=== PATIENT | male | born 1960 | race Caucasian/White ===

== ENCOUNTER → 2017-11-27 | Outpatient (CLI) | payer BC ==
--- NOTE | 2017-11-27 15:29 | US ---
EXAMINATION TYPE: US kidneys/renal and bladder DATE OF EXAM: 11/27/2017 COMPARISON: NONE CLINICAL HISTORY: N28.1 Cyst of kidney. known cyst from MRI EXAM MEASUREMENTS: Right Kidney: 11.9 x 4.1 x 5.7 cm Left Kidney: 10.9 x 5.7 x 6.3 cm Right Kidney: 2.1cm inferior pole cyst with increased or transmission is noted. Left Kidney: wnl Bladder: wnl Bilateral Jets seen: no There is no evidence for hydronephrosis at this point in time. No nephrolithiasis is seen. The urina ry bladder is anechoic. Bilateral ureteral jets are seen. IMPRESSION: Right inferior pole 2.1 cm renal cyst. No evidence of hydronephrosis or nephrolithiasis.
== END ==
LOC: RADUSWWP 14:52
PROVIDERS: ATTEND Family Medicine
DX: N28.1 Cyst of kidney, acquired (principal)
CPT/HCPCS: 76770

== ENCOUNTER 2022-01-06 13:57 | Observation (INO) | payer BC ==
[2022-01-06 14:44] LABS: Basophils # (A) 0.1 k/uL (0-0.2); Basophils % (A) 1 %; Eosinophils # (A) 0.2 k/uL (0-0.7); Eosinophils % (A) 3 %; HGB 14.9 gm/dL (13.0-17.5); Lymphocytes # (A) 1.5 k/uL (1.0-4.8); Lymphocytes % (A) 21 %; MCHC 34.7 g/dL (31.0-37.0); MCV 92.2 fL (80.0-100.0); Mean Platelet Volume 6.5; Monocytes # (A) 0.4 k/uL (0-1.0); Monocytes % (A) 5 %; Neutrophils % (A) 69 %; Platelet Count 258 k/uL (150-450); RBC 4.66 m/uL (4.30-5.90); WBC 7.2 k/uL (3.8-10.6)
[2022-01-06 14:48] LABS: ALT 17 U/L (4-49); AST 30 U/L (17-59); African American GFR (CKD) >90 (>60 ml/min/1.73 sqM); Albumin 4.6 g/dL (3.5-5.0); Alkaline Phosphatase 84 U/L (38-126); Anion Gap 8 mmol/L; Blood Urea Nitrogen 8 mg/dL (9-20); Calcium 9.8 mg/dL (8.4-10.2); Carbon Dioxide 24 mmol/L (22-30); Chloride 104 mmol/L (98-107); Glucose 111 mg/dL (74-99); Non-African American GFR(CKD) >90 (>60 ml/min/1.73 sqM); Potassium 4.2 mmol/L (3.5-5.1); Sodium 136 mmol/L (137-145); Total Bilirubin 0.6 mg/dL (0.2-1.3)
[2022-01-06 14:56] LABS: INR 0.9 (<1.2)
--- NOTE | 2022-01-06 17:21 | ED ---
Dizziness HPI - General Chief Complaint: Dizziness Stated Complaint: High Blood Pressure, Dizziness, Light headed Time Seen by Provider: 01/06/22 16:51 Source: patient, RN notes reviewed Mode of arrival: wheelchair Limitations: no limitations - History of Present Illness Initial Comments: This is a pleasant 61-year-old male who presents emergency back complaining of lightheadedness, hypertension, and transient double vision. She states that last night he had nasal congestion and stuffiness. He thought he had a head cold. States he skipped his blood pressure medications and took NyQuil. He states he woke up this morning with elevated blood pressure and at 6 AM had an episode of double vision which lasted about one hour. States EMS was called and she came to us house. He was taken through a baseline neurological eval, he states by family got there they double vision had resolved. He denies any other neurologic symptoms. There is no focal weakness. No slurred speech. No facial drooping. States he did have a headache. He states she's actually more or less back to baseline now. Patient denies any shortness breath or chest pain. No neck pain. No abdominal pain. No nausea or vomiting. No changes in balance urination. No numbness or tingling. No gait disturbance. No current dizziness or vertiginous symptoms. In rashes or lesions. MD Complaint: lightheadedness - Related Data Home Medications Medication Instructions Recorded Confirmed Allopurinol [Zyloprim] 100 mg PO DAILY 01/06/22 01/06/22 Ascorbic Acid [Vitamin C] 500 mg PO DAILY 01/06/22 01/06/22 Cholecalciferol [Vitamin D3 (25 25 mcg PO DAILY 01/06/22 01/06/22 Mcg = 1000 Iu)] Olmesartan Medoxomil [Benicar] 40 mg PO DAILY 01/06/22 01/06/22 Terazosin HCl 5 mg PO DAILY 01/06/22 01/06/22 Zinc 50 mg PO DAILY 01/06/22 01/06/22 Previous Rx's Medication Instructions Recorded Amoxic-Pot Clav 875-125Mg 1 tab PO BID 7 Days #14 tab 01/07/22 [Augmentin 875-125] Aspirin 81 mg PO DAILY 30 Days #30 tab 01/07/22 Atorvastatin [Lipitor] 40 mg PO HS 30 Days #30 tab 01/07/22 Fluticasone Propionate [Flonase 1 spray EA NOSTRIL BID #9.9 ml 01/07/22 Allergy Relief] predniSONE See Taper PO DIRECTED #30 tab 01/07/22 Allergies Allergy/AdvReac Type Severity Reaction Status Date / Time No Known Allergies Allergy Verified 01/06/22 17:40 Review of Systems ROS Statement: Those systems with pertinent positive or pertinent negative responses have been documented in the HPI. ROS Other: All systems not noted in ROS Statement are negative. Past Medical History Past Medical History: Hypertension Additional Past Medical History / Comment(s): back pain History of Any Multi-Drug Resistant Organisms: None Reported Past Surgical History: Joint Replacement, Orthopedic Surgery Additional Past Surgical History / Comment(s): Bilateral knee sx, right ankle sx, hip replacement Past Psychological History: No Psychological Hx Reported Smoking Status: Former smoker Past Alcohol Use History: None Reported Past Drug Use History: None Reported - Past Family History Family Family Medical History: Coronary Artery Disease (CAD) General Exam - General Exam Comments Initial Comments: Nontoxic-appearing 61-year-old male who presents in no acute distress. Cranial nerves II through XII are intact. Limitations: no limitations General appearance: alert, in no apparent distress Head exam: Present: atraumatic, normocephalic, normal inspection Eye exam: Present: normal appearance, PERRL, EOMI. Absent: scleral icterus, conjunctival injection, nystagmus, periorbital swelling, periorbital tenderness ENT exam: Present: normal exam, normal oropharynx, mucous membranes moist, TM's normal bilaterally, normal external ear exam Neck exam: Present: normal inspection, full ROM. Absent: tenderness, meningismus, lymphadenopathy Respiratory exam: Present: normal lung sounds bilaterally. Absent: respiratory distress, wheezes, rales, rhonchi, stridor Cardiovascular Exam: Present: regular rate, normal rhythm, normal heart sounds. Absent: systolic murmur, diastolic murmur, rubs, gallop, clicks GI/Abdominal exam: Present: soft, normal bowel sounds. Absent: distended, tende rness, guarding, rebound, rigid, diminished bowel sounds Extremities exam: Present: normal inspection, full ROM, normal capillary refill. Absent: tenderness, pedal edema, joint swelling, calf tenderness Back exam: Present: normal inspection Neurological exam: Present: alert, oriented X3, CN II-XII intact, normal gait, other (Cerebellar testing is normal. [place] Coma Scale is 15. Romberg is negative). Absent: altered, abnormal gait, motor sensory deficit, reflexes normal Psychiatric exam: Present: normal affect, normal mood Skin exam: Present: warm, dry, intact, normal color. Absent: rash Course Vital Signs 01/06/22 01/06/22 01/06/22 14:12 18:42 21:40 Temperature 98.6 F 97.9 F Pulse Rate 95 80 78 Pulse Rate [ Pulse Oximetery ] Respiratory 20 16 18 Rate Blood Pressure 154/97 171/101 153/92 Blood Pressure [Left Arm] O2 Sat by Pulse 96 99 95 Oximetry 01/07/22 01/07/22 01/07/22 03:48 07:54 13:22 Temperature 98.0 F 98.5 F Pulse Rate 77 Pulse Rate [ 80 104 H Pulse Oximetery ] Respiratory 16 18 15 Rate Blood Pressure 161/89 Blood Pressure 159/92 136/84 [Left Arm] O2 Sat by Pulse 96 98 98 Oximetry - Reevaluation(s) Reevaluation #1: 01/06/22 18:20 Medical record is reviewed Symptoms are unchanged Patient is informed of results and questions answered Patient in no distress EKG Findings - EKG Results: EKG: interpreted by PORTER, sinus rhythm (Right bundle-branch block with a rate of 90, no evidence of acute changes. IN interval is 204 ms consistent with a first-degree AV block. QRS duration 124 ms. QTC 419 ms.) Medical Decision Making - Medical Decision Making Patient had an episode of diplopia which lasted for about 1 hour starting at 6 AM. Patient is now since her asymptomatic. Patient's blood pressure is elevated at the time. He had no other neurologic complaints or findings. Certainly TIA is within the differential. We'll obtain a CT of the head as well as a CT angiogram of the head and neck. Plan for consultation with neurology. - Lab Data Result diagrams: 01/07/22 06:28 01/07/22 06:28 Lab Results 01/06/22 01/06/22 01/06/22 Range/Units 14:20 14:21 14:21 WBC 7.2 (3.8-10.6) k/uL RBC 4.66 (4.30-5.90) m/uL Hgb 14.9 (13.0-17.5) gm/dL Hct 43.0 (39.0-53.0) % MCV 92.2 (80.0-100.0) fL MCH 32.0 (25.0-35.0) pg MCHC 34.7 (31.0-37.0) g/dL RDW 13.0 (11.5-15.5) % Plt Count 258 (150-450) k/uL MPV 6.5 Neutrophils % 69 % Lymphocytes % 21 % Monocytes % 5 % Eosinophils % 3 % Basophils % 1 % Neutrophils # 5.0 (1.3-7.7) k/uL Lymphocytes # 1.5 (1.0-4.8) k/uL Monocytes # 0.4 (0-1.0) k/uL Eosinophils # 0.2 (0-0.7) k/uL Basophils # 0.1 (0-0.2) k/uL PT 10.0 (9.0-12.0) sec INR 0.9 (<1.2) Sodium (137-145) mmol/L Potassium (3.5-5.1) mmol/L Chloride (98-107) mmol/L Carbon Dioxide (22-30) mmol/L Anion Gap mmol/L BUN (9-20) mg/dL Creatinine (0.66-1.25) mg/dL Est GFR (CKD-EPI)AfAm (>60 ml/min/1.73 sqM) Est GFR (CKD-EPI)NonAf (>60 ml/min/1.73 sqM) Glucose (74-99) mg/dL Calcium (8.4-10.2) mg/dL Total Bilirubin (0.2-1.3) mg/dL AST (17-59) U/L ALT (4-49) U/L Alkaline Phosphatase (38-126) U/L Troponin I (0.000-0.034) ng/mL Total Protein (6.3-8.2) g/dL Albumin (3.5-5.0) g/dL Coronavirus (PCR) Not Detected (Not Detectd) 01/06/22 01/06/22 Range/Units 14:21 14:21 WBC (3.8-10.6) k/uL RBC (4.30-5.90) m/uL Hgb (13.0-17.5) gm/dL Hct (39.0-53.0) % MCV (80.0-100.0) fL MCH (25.0-35.0) pg MCHC (31.0-37.0) g/dL RDW (11.5-15.5) % Plt Count (150-450) k/uL MPV Neutrophils % % Lymphocytes % % Monocytes % % Eosinophils % % Basophils % % Neutrophils # (1.3-7.7) k/uL Lymphocytes # (1.0-4.8) k/uL Monocytes # (0-1.0) k/uL Eosinophils # (0-0.7) k/uL Basophils # (0-0.2) k/uL PT (9.0-12.0) sec INR (<1.2) Sodium 136 L (137-145) mmol/L Potassium 4.2 (3.5-5.1) mmol/L Chloride 104 (98-107) mmol/L Carbon Dioxide 24 (22-30) mmol/L Anion Gap 8 mmol/L BUN 8 L (9-20) mg/dL Creatinine 0.71 (0.66-1.25) mg/dL Est GFR (CKD-EPI)AfAm >90 (>60 ml/min/1.73 sqM) Est GFR (CKD-EPI)NonAf >90 (>60 ml/min/1.73 sqM) Glucose 111 H (74-99) mg/dL Calcium 9.8 (8.4-10.2) mg/dL Total Bilirubin 0.6 (0.2-1.3) mg/dL AST 30 (17-59) U/L ALT 17 (4-49) U/L Alkaline Phosphatase 84 (38-126) U/L Troponin I <0.012 (0.000-0.034) ng/mL Total Protein 8.0 (6.3-8.2) g/dL Albumin 4.6 (3.5-5.0) g/dL Coronavirus (PCR) (Not Detectd) Disposition Clinical Impression: TIA (transient ischemic attack), Diplopia, Hypertension, poor control Disposition: ADMITTED IP TO THIS [facility] Condition: Stable Decision to Admit Reason: Admit from EC Decision Time: 18:23
--- NOTE | 2022-01-06 17:41 | CT ---
EXAMINATION TYPE: CT brain wo con EXAM: CT brain wo con CLINICAL HISTORY: Lightheadedness, dizziness and double vision. COMPARISON: None TECHNIQUE: Contiguous axial noncontrast images of the brain were obtained. Coronal and sagittal refor mats were generated and reviewed. Automated dose control was used for this exam. FINDINGS: There is no evidence for intracranial hemorrhage, mass effect or midline shift. White matter is gross ly preserved. Ventricular size and configuration is within normal limits for degree of parenchymal volume. The paranasal sinuses demonstrate mild to moderate mucosal thickening involving the left maxillary si nus. The mastoid air cells are clear. No evidence for calvarial fracture. IMPRESSION: No acute intracranial abnormality.
--- NOTE | 2022-01-06 18:13 | CT ---
EXAMINATION TYPE: CT angio head neck DATE OF EXAM: 01/06/2022 HISTORY: Lightheaded, dizzy, double vision. COMPARISON: None available. CT DLP: 682.4 mGycm. Automated Exposure Control for Dose Reduction was Utilized. TECHNIQUE: CTA scan of the neck is performed without and with IV Contrast, patient injected with 65 mL of Isovue 370, axial images are obtained, coronal and sagittal reformatted images are reviewed. 3D reconstructed images are created on an independent workstation and reviewed. FINDINGS: There is mild atherosclerosis of the carotid bulbs. Otherwise normal three-vessel branching of the ao rta. There is no evidence of high-grade stenosis, dissection or aneurysm seen in the bilateral common carotid, cervical internal carotid and vertebral arteries. There is no evidence of high-grade stenosis, dissection or aneurysm in the intracranial internal quintero tid arteries, anterior, middle and posterior cerebral arteries as well as in the imaged vertebral and basilar arteries. The communicating arteries are unremarkable. Limited evaluation of the brain parenchyma and osseous structures demonstrate no acute abnormality. IMPRESSION: No significant abnormality of the CTA head/neck. NASCET criteria was used in interpretation of this exam?
[2022-01-06] MEDS ORDERED: ASPIRIN 325 MG TAB PO STA (18:19)
[2022-01-06] MEDS ORDERED: NALOXONE 0.4 MG/ML 1 ML VIAL IV PRN (18:23)
[2022-01-06] MEDS ORDERED: ACETAMINOPHEN TAB 325 MG TAB PO PRN (18:23)
[2022-01-06] MEDS ORDERED: ONDANSETRON 4 MG/2 ML VIAL IVP PRN (18:23)
[2022-01-06] MEDS ORDERED: SODIUM CHLORIDE 0.9% 1,000 ML IV SCH (18:30)
[2022-01-06] MEDS ORDERED: LOSARTAN 25 MG TAB PO STA (18:31)
[2022-01-06] MEDS ORDERED: LORazepam 2 MG/ML INJ IV STA ×2 (18:40→21:59)
--- NOTE | 2022-01-06 19:53 | US ---
EXAMINATION TYPE: US carotid duplex BILAT DATE OF EXAM: 01/06/2022 COMPARISON: CTA 01/06/22 CLINICAL HISTORY: Stenosis evaluation. EXAM MEASUREMENTS: RIGHT: Peak Systolic Velocity (PSV) cm/sec ----- Right CCA: 74.2 ----- Right ICA: 89.9 ----- Right ECA: 109.4 ICA/CCA ratio: 1.2 RIGHT: End Diastole cm/sec ----- Right CCA: 18.1 ----- Right ICA: 28.6 ----- Right ECA: 15.5 LEFT: Peak Systolic Velocity (PSV) cm/sec ----- Left CCA: 62.4 ----- Left ICA: 107.3 ----- Left ECA: 99.5 ICA/CCA ratio: 1.7 LEFT: End Diastole cm/sec ----- Left CCA: 17.3 ----- Left ICA: 36.1 ----- Left ECA: 14.1 VERTEBRALS (direction of flow): Right Vertebral: Antegrade Left Vertebral: Antegrade Rhythm: Normal Mild plaque formation seen bilaterally. There is plaque formation within the left internal carotid ar alicia, where velocities elevate at the left mid internal carotid artery. IMPRESSION: No hemodynamically significant stenosis of the bilateral ICAs. Criteria for Assigning % of Stenosis / Diameter reduction (Estimation based on the indirect measurements of the internal carotid artery velocities (ICA PSV). 1. Normal (no stenosis)=ICA PSV < 125 cm/s: ratio < 2.0: ICA EDV<40 cm/s. 2. Less than 50% stenosis=ICA PSV < 125 cm/s: ratio < 2.0: ICA EDV<40 cm/s. 3. 50 to 69% stenosis=ICA PSV of 125 to 230 cm/s: ration 2.0 ? 4.0: ICA EDV 40-100 cm/s. 4. Greater than 70% stenosis to near occlusion= ICA PSV > 230 cm/s: ratio > 4.0: ICA EDV > 100 cm/s. 5. Near occlusion= ICA PSV velocities may be low or undetectable: variable ratio and ICA EDV. 6. Total occlusion=unable to detect flow.
[2022-01-06] MEDS ORDERED: ZOLPIDEM 5 MG TAB PO PRN ×2 (22:36→22:38)
--- NOTE | 2022-01-07 03:42 | P.HPIM ---
History of Present Illness H&P Date: 01/06/22 Chief Complaint: double vision 61 year old male with hypertension patient woke up this morning experiencing double vision that lasted for about an hour , headache, and not feeling well overall. he found that his blood pressure was high, the night before, he was experiencing had cold symptoms , for which he took nyquil and missed his night time dose of olmesartan and terazosin. patient otherwise denies any other focal neuro deficits he then improved, but later during the day , felt weak and tired again, became anxious and SOB around early afternoon for which he decided to come in for evaluation. he denies any history of CAD, stroke, DM, he denies any smoking, drug abuse, or alcohol blood work unremarkable viral signs stable covid testing negative Review of Systems Pertinent positives as noted in HPI. All other systems were reviewed and are negative Past Medical History Past Medical History: Hypertension Additional Past Medical History / Comment(s): back pain History of Any Multi-Drug Resistant Organisms: None Reported Past Surgical History: Joint Replacement, Orthopedic Surgery Additional Past Surgical History / Comment(s): Bilateral knee sx, right ankle sx, hip replacement Past Psychological History: No Psychological Hx Reported Smoking Status: Former smoker Past Alcohol Use History: None Reported Past Drug Use History: None Reported - Past Family History Family Family Medical History: Coronary Artery Disease (CAD) Medications and Allergies Home Medications Medication Instructions Recorded Confirmed Type Allopurinol [Zyloprim] 100 mg PO DAILY 01/06/22 01/06/22 History Ascorbic Acid [Vitamin C] 500 mg PO DAILY 01/06/22 01/06/22 History Cholecalciferol [Vitamin D3 (25 25 mcg PO DAILY 01/06/22 01/06/22 History Mcg = 1000 Iu)] Olmesartan Medoxomil [Benicar] 40 mg PO DAILY 01/06/22 01/06/22 History Terazosin HCl 5 mg PO DAILY 01/06/22 01/06/22 History Zinc 50 mg PO DAILY 01/06/22 01/06/22 History Allergies Allergy/AdvReac Type Severity Reaction Status Date / Time No Known Allergies Allergy Verified 01/06/22 17:40 Physical Exam Vitals: Vital Signs Temp Pulse Resp BP Pulse Ox 01/06/22 21:40 97.9 F 78 18 153/92 95 01/06/22 18:42 80 16 171/101 99 02/21/22 14:12 98.6 F 95 20 154/97 96 Intake and Output 01/06/22 01/06/22 01/07/22 14:59 22:59 06:59 Other: Weight 104.326 kg Constitutional: No acute distress, conversant, pleasant Eyes: Anicteric sclerae, moist conjunctiva, Pupils equal round reactive to light ENMT: NC/AT Oropharynx clear, no erythema, or exudates Neck: Supple, FROM, no masses, or JVD No carotid bruits No thyromegaly Lungs: Clear to auscultation Clear to percussion Normal respiratory effort, no accessory muscle use Cardiovascular: Heart regular in rate and rhythm, No murmurs, gallops, or rubs No peripheral edema Abdominal: Soft Nontender, no guarding, rebound or rigidity Abdomen moving with respiration Normoactive bowel sounds No hepatomegaly, No splenomegaly No palpable mass No abdominal wall hernia noted Skin: Normal temperature, tone, texture, turgor No induration No subcutaneous nodules No rash, lesions No ulcers Extremities: No digital cyanosis No clubbing Pedal pulses intact and symmetrical Radial pulses intact and symmetrical No calf tenderness Psychiatric: Alert and oriented to person, place and time Appropriate affect fair judgement Neuro Muscles Strength 5/5 in all 4 extremities Sensation to light touch grossly present throughout Cranial nerves II-XII grossly intact No focal sensory deficits Finger-nose test intact Lymphatics: no palpable cervical or supraclavicular , or inguinal lymph nodes Results CBC & Chem 7: 01/06/22 14:21 01/06/22 14:21 Labs: Abnormal Lab Results - Last 24 Hours (Table) 01/06/22 Range/Units 14:21 Sodium 136 L (137-145) mmol/L BUN 8 L (9-20) mg/dL Glucose 111 H (74-99) mg/dL Assessment and Plan Assessment: Acute upper respiratory infection most likely viral Covid testing negative Influenza negative Supportive care Symptomatic control of runny nose, headache Generalized weakness and double vision, doubt TIA Patient admitted for neurology evaluation CT imaging of the head, CT angiogram head and neck no acute pathology Check echocardiogram Check lipid panel Check A1c Neurochecks Monitor vital signs PT eval DVT prophylaxis mechanical Full code Anticipated length of stay less than 2 midnights
[2022-01-07] MEDS ORDERED: DOXAZOSIN 4 MG TAB PO SCH (09:00)
[2022-01-07] MEDS ORDERED: ASPIRIN 325 MG TAB PO SCH (09:00)
[2022-01-07] MEDS ORDERED: LOSARTAN 50 MG TAB PO SCH (09:00)
[2022-01-07] MEDS ORDERED: allopurinoL 100 MG TAB PO SCH (09:00)
[2022-01-07 09:15] LABS: Basophils # (A) 0.03 X 10*3/uL (0.00-0.10); Basophils % (A) 0.5 %; Eosinophils # (A) 0.31 X 10*3/uL (0.04-0.35); HCT 39.5 % (39.6-50.0); HGB 13.1 g/dL (13.0-17.0); Immature Grans, Automated 0.6 %; Lymphocytes # (A) 1.92 X 10*3/uL (0.90-5.00); Lymphocytes % (A) 30.8 %; MCH 30.6 pg (27.0-32.0); MCHC 33.2 g/dL (32.0-37.0); MCV 92.3 fL (80.0-97.0); Mean Platelet Volume 9.2 fL (9.5-12.2); Monocytes # (A) 0.62 X 10*3/uL (0.20-1.00); Monocytes % (A) 9.9 %; NRBC Per 100 WBC 0 /100 WBCS (0.0-0.0); Neutrophils # (A) 3.32 X 10*3/uL (1.80-7.70); Neutrophils % (A) 53.2 %; Platelet Count 227 X 10*3/uL (140-440); RBC 4.28 X 10*6/uL (4.40-5.60); WBC 6.24 X 10*3/uL (4.50-10.00)
[2022-01-07 09:23] LABS: African American GFR (CKD) 117.2 (60.0-200.0); BUN/Creat Ratio 10.43 Ratio (12.00-20.00); Blood Urea Nitrogen 7.3 mg/dL (9.0-27.0); Calcium 9.1 mg/dL (8.7-10.3); Chloride 101 mmol/L (96-109); Chol/HDL Ratio 7.19 Ratio; Glucose 90 mg/dL (70-110); LDL Cholesterol,Calculated 167.1 mg/dL (0.0-131.0); Magnesium 2.3 mg/dL (1.5-2.4); Non-African American GFR(CKD) 101.1 (60.0-200.0); Potassium 4.2 mmol/L (3.5-5.5); Sodium 140 mmol/L (135-145)
--- NOTE | 2022-01-07 10:00 | ECHOF ---
Referral Reason:Thrombus MEASUREMENTS -------- HEIGHT: 182.9 cm WEIGHT: 108.4 kg BP: RVIDd: 3.5 cm (< 3.3) IVSd: 1.3 cm (0.6 - 1.1) LVIDd: 4.8 cm (3.9 - 5.3) LVPWd: 1.5 cm (0.6 - 1.1) IVSs: 1.6 cm LVIDs: 4.3 cm LVPWs: 1.4 cm LA Diam: 4.4 cm (2.7 - 3.8) LAESV Index (A-L): 29.52 ml/m Ao Diam: 3.6 cm (2.0 - 3.7) AV Cusp: 1.6 cm (1.5 - 2.6) LA Diam: 2.9 cm (2.7 - 3.8) MV EXCURSION: 21.866 mm (> 18.000) MV EF SLOPE: 104 mm/s (70 - 150) EPSS: 0.3 cm MV E Rajendra: 0.62 m/s MV DecT: 182 ms MV A Rajendra: 0.66 m/s MV E/A Ratio: 0.94 RAP: 5.00 mmHg RVSP: 13.62 mmHg FINDINGS -------- Sinus rhythm. This was a technically adequate study. The left ventricular size is normal. There is mild concentric left ventricular hypertrophy. Overa ll left ventricular systolic function is normal with, an EF between 55 - 60 %. The diastolic fillin g pattern is normal for the age of the patient 10.83. The right ventricle is normal in size. Normal LA size by volume 22+/-6 ml/m2. The right atrial size is normal. The aortic valve is trileaflet and appears structurally normal. Trace to mild aortic regurgitation. The mitral valve is normal. Mild mitral regurgitation is present. The tricuspid valve appears structurally normal. Mild tricuspid regurgitation present. Right vent ricular systolic pressure is normal at < 35 mmHg. Trace/mild (physiologic) pulmonic regurgitation. The aortic root size is normal. There is no pericardial effusion. CONCLUSIONS -------- 1. There is mild concentric left ventricular hypertrophy. 2. Overall left ventricular systolic function is normal with, an EF between 55 - 60 %. 3. Normal LA size by volume 22+/-6 ml/m2. 4. Trace to mild aortic regurgitation. 5. Mild mitral regurgitation is present. 6. Mild tricuspid regurgitation present. 7. There is no pericardial effusion. TIMBER MANAGEMENT PROFESSOR: Leah Del Toro RDCS
--- NOTE | 2022-01-07 13:11 | MR ---
MR brain without contrast HISTORY: TIA, double vision, headache Multiplanar multisequence imaging obtained through the brain and correlated to CT brain 01/06/2022 There is no restricted diffusion. Cord lateral views noted. There is no hemorrhage or hydrocephalus. Periventricular, pericallosal confluent and scattered hyperintensities are present on inversion recov kiara T2-weighted sequences. The orbits are symmetric. Inflammatory changes are present within the bila teral maxillary sinuses, ethmoid air cells and frontal and sphenoid sinus, mastoid air cells on the l eft. Cerebellopontine angles, corpus callosum, pituitary, cervical medullary junction are within norm al limits. There are expected vascular flow voids. IMPRESSION: Age-related changes of atrophy and chronic small vessel ischemia. Correlate for sinusitis , mastoiditis on the left
[2022-01-07 13:23] VITALS: BP 136/84; PULSE 104; RESP 15; TEMP 98.5
--- NOTE | 2022-01-07 14:27 | P.DS ---
<Rahul Pickering - Last Filed: 01/07/22 15:04> Providers Expected date of discharge: 01/07/22 Hospital Course: Discharge Diagnosis: Acute sinusitis Hypertensive urgency Headache and dizziness secondary to acute sinusitis Newly Diagnosed Hyperlipidemia Hospital Course: Patient is a 62-year-old male with a past medical history of hypertension. He presented to the emergency department with a chief complaint of hypertension, headache, and dizziness on 01/06/21. Patient underwent full evaluation. He reported missing a couple of his evening doses of his blood pressure medications prior to this event. CT head was negative for acute intercranial process. CBC, coags, CMP, and troponin all unremarkable. Covid PCR negative. Patient was admitted under our services with consultation to neurology. Symptoms of headache, hypertension, and dizziness all resolved shortly after arrival in the emergency department. CTA head and neck was negative for acute process. Carotid Doppler showing no significant stenosis bilaterally. MRI brain revealing age- related changes of atrophy and chronic small vessel ischemia with signs of sinusitis and mastoiditis of the left. Echocardiogram revealed mild concentric left ventricular hypertrophy with a normal EF between 55-60% and mild mitral and tricuspid regurgitation. Lipid profile revealed an elevated triglycerides of 232, elevated total cholesterol of 248, elevated LDL of 167.1, elevated VLDL of 46.4 and a low HDL of 34.5. Patient started on daily aspirin and atorvastatin. Patient did report signs/symptoms of a cold/sinus infection, but denies any ear pain or pain behind the ears. Neurology recommending patient follow-up outpatient with PCP for continued long-term monitoring/management. Patient is medically stable for discharge at this time. Patient being given prescription for atorvastatin and aspirin and recommended to maintain a heart healthy diet. Patient also started on Augmentin, prednisone taper, and Flonase for treatment of his acute sinusitis. Patient to follow up outpatient with PCP in 1-2 days and with ENT in one week. Physical examination: Vital signs reviewed and stable. General: Nontoxic, no distress and appears stated age. Derm: Skin warm and dry, normal coloration for ethnicity. Head: Atraumatic, normocephalic and symmetric. No tenderness reported upon palpation of mastoids. Eyes: EOMs intact, no lid lag, and anicteric sclera. Mouth: no lip lesions, mucus membranes moist Cardiovascular: regular rate and rhythm with normal S1S2, no murmur, positive posterior tibial pulses bilaterally, and cap refill < 2 seconds. Lungs: Respirations even, regular, and unlabored on room air. Lungs CTA bilaterally, no rhonchi, no rales, no wheezing, and no accessory muscle usage. Abdominal: soft, nontender to palpation, no guarding, no appreciable organomegaly Ext: ROM intact. No gross muscle atrophy, no edema, no contractures Neuro: Speech clear, face symmetrical and CN II-XII grossly intact with no noted focal neuro deficits Psych: Alert and oriented to person, place, time, and situation. Appropriate and pleasant affect. A total of 40 minutes of time were spent preparing this complex discharge summary. Patient Condition at Discharge: Stable Plan - Discharge Summary Discharge Rx Participant: Yes New Discharge Prescriptions: New Amoxic-Pot Clav 875-125Mg [Augmentin 875-125] 1 tab PO BID 7 Days #14 tab Fluticasone Propionate [Flonase Allergy Relief] 1 spray EA NOSTRIL BID #9.9 ml Atorvastatin [Lipitor] 40 mg PO HS 30 Days #30 tab predniSONE See Taper PO DIRECTED #30 tab Aspirin 81 mg PO DAILY 30 Days #30 tab Continue Terazosin HCl 5 mg PO DAILY Cholecalciferol [Vitamin D3 (25 Mcg = 1000 Iu)] 25 mcg PO DAILY Zinc 50 mg PO DAILY Ascorbic Acid [Vitamin C] 500 mg PO DAILY Olmesartan Medoxomil [Benicar] 40 mg PO DAILY Allopurinol [Zyloprim] 100 mg PO DAILY Discharge Medication List Allopurinol [Zyloprim] 100 mg PO DAILY 01/06/22 [History] Ascorbic Acid [Vitamin C] 500 mg PO DAILY 01/06/22 [History] Cholecalciferol [Vitamin D3 (25 Mcg = 1000 Iu)] 25 mcg PO DAILY 01/06/22 [History] Olmesartan Medoxomil [Benicar] 40 mg PO DAILY 01/06/22 [History] Terazosin HCl 5 mg PO DAILY 01/06/22 [History] Zinc 50 mg PO DAILY 01/06/22 [History] Amoxic-Pot Clav 875-125Mg [Augmentin 875-125] 1 tab PO BID 7 Days #14 tab 01/07/22 [Rx] Aspirin 81 mg PO DAILY 30 Days #30 tab 01/07/22 [Rx] Atorvastatin [Lipitor] 40 mg PO HS 30 Days #30 tab 01/07/22 [Rx] Fluticasone Propionate [Flonase Allergy Relief] 1 spray EA NOSTRIL BID #9.9 ml 01/07/22 [Rx] predniSONE See Taper PO DIRECTED #30 tab 01/07/22 [Rx] Follow up Appointment(s)/Referral(s): Jf Mack MD [Primary Care Provider] - 1-2 days Samy Bradley MD [STAFF PHYSICIAN] - 1 Week Patient Instructions/Handouts: Sinusitis (GEN), Diplopia (DC) Activity/Diet/Wound Care/Special Instructions: Activity: As tolerated. Take breaks as needed. Diet: Heart healthy and carb consistent diet. Avoid salts, or foods with hidden salts such as canned or boxed foods and frozen dinners. Extra salt makes your heart work harder and traps the fluid in your body for longer. Special Instructions: Take all of your medications as directed and remember to keep all of your doctor's appointments and follow-up as needed. Thank you for allowing us to participate in your care, it was truly a pleasure having you for our patient!!! Discharge Disposition: HOME SELF-CARE <Nolvia Fallon - Last Filed: 01/08/22 16:25> Providers Date of admission: 01/06/22 18:48 Attending physician: Cori Cummings MD Consults: 01/06/22 18:23 Consult Physician Urgent Consulting Provider: Jose Manuel Garrido Consult Reason/Comments: TIA Do you want consulting provider notified?: Yes Primary care physician: Jf Mack Hospital Course: I reviewed the documentation as provided by the STEPHANIE above, who is the original author of this note. I agree with the documented assessment and plan, with the following changes: None
[2022-01-07] MEDS ORDERED: ATORVASTATIN 40 MG TAB PO SCH (21:00)
[2022-01-07] MEDS ORDERED: ATORVASTATIN 80 MG TAB PO SCH (21:00)
--- NOTE | 2022-01-08 11:18 | P.CNNES ---
History of Present Illness Consult date: 01/07/22 Requesting physician: Froilan You Reason for Consult: TIA History of Present Illness: Patient is a 61-year-old male came to the hospital yesterday at 1:57 PM. Patient states that on Thursday afternoon, 01/05/2022 he started with symptoms of head cold. It felt like a sinus congestion with stuffiness. He took Niyah-[place]. He did not take his morning dose of losartan because he did not want it to mix it with Niy[place]. At night he took NyQuil and did not take his nightly dose of Terazosin, again for the same reasons. He slept well at night. The next day, which is yesterday morning he woke up at 6 AM with double vision. It lasted for 45 minutes to an hour and then went away. He felt slightly lightheaded but no other symptoms otherwise. Therefore he decided to come to the ER. Patient denies any slurred speech, facial droop, any numbness tingling focal weakness, no incoordination and balance is fine. Vital signs on arrival blood pressure 154/97, pulse of 95 temperature 98.6. Blood tests shows normal CBC, PT/PTT, normal chem 20. Hemoglobin A1c 5.5. CT head showed no acute intracranial abnormality. I personally reviewed computed tomography scan of the head and agree with the findings. There is evidence of left ethmoid and left maxillary sinus disease. CTA of head and neck showed no significant abnormality. Patient was diagnosed with hypertension one year ago after he was diagnosed with Covid-19. He has not been vaccinated. He denies diabetes. Denies hyperlipidemia. Never smoked. He sometimes drinks a glass of wine on the weekend. Patient does not take any antiplatelet medication at home. His last eye doctor examination was couple years ago and is due for another one. Review of Systems As mentioned in HPI. All other 14 point of review systems reviewed and unremarkable. Past Medical History Past Medical History: Hypertension Additional Past Medical History / Comment(s): back pain History of Any Multi-Drug Resistant Organisms: None Reported Past Surgical History: Joint Replacement, Orthopedic Surgery Additional Past Surgical History / Comment(s): Bilateral knee sx, right ankle sx, hip replacement Past Psychological History: No Psychological Hx Reported Smoking Status: Former smoker Past Alcohol Use History: None Reported Past Drug Use History: None Reported - Past Family History Family Family Medical History: Coronary Artery Disease (CAD) Medications and Allergies Home Medications Medication Instructions Recorded Confirmed Type Allopurinol [Zyloprim] 100 mg PO DAILY 01/06/22 01/06/22 History Ascorbic Acid [Vitamin C] 500 mg PO DAILY 01/06/22 01/06/22 History Cholecalciferol [Vitamin D3 (25 25 mcg PO DAILY 01/06/22 01/06/22 History Mcg = 1000 Iu)] Olmesartan Medoxomil [Benicar] 40 mg PO DAILY 01/06/22 01/06/22 History Terazosin HCl 5 mg PO DAILY 01/06/22 01/06/22 History Zinc 50 mg PO DAILY 01/06/22 01/06/22 History Amoxic-Pot Clav 875-125Mg 1 tab PO BID 7 Days #14 tab 01/07/22 Rx [Augmentin 875-125] Aspirin 81 mg PO DAILY 30 Days #30 tab 01/07/22 Rx Atorvastatin [Lipitor] 40 mg PO HS 30 Days #30 tab 01/07/22 Rx Fluticasone Propionate [Flonase 1 spray EA NOSTRIL BID #9.9 ml 01/07/22 Rx Allergy Relief] predniSONE See Taper PO DIRECTED #30 tab 01/07/22 Rx Allergies Allergy/AdvReac Type Severity Reaction Status Date / Time No Known Allergies Allergy Verified 01/06/22 17:40 Physical Examination - Vital Signs Vital Signs: Vital Signs Temp Pulse Pulse Resp BP BP Pulse Ox 01/07/22 07:54 98.0 F 80 18 159/92 98 01/07/22 03:48 77 16 161/89 96 01/06/22 21:40 97.9 F 78 18 153/92 95 01/06/22 18:42 80 16 171/101 99 01/06/22 14:12 98.6 F 95 20 154/97 96 Intake and Output 01/06/22 01/07/22 01/07/22 22:59 06:59 14:59 Other: Weight 104.326 kg Patient is a late middle aged male, in no acute distress. Patient is alert awake oriented to time place and person. Speech and language functions are normal. Attention, concentration and fund of knowledge is adequate. On cranial nerve examination, pupils are equal, round and reacting to light, visual duarte are full on confrontation, with no neglect on double simultaneous stimulation. His extraocular muscles are intact in all 9 directions, with no nystagmus. No diplopia. Face is symmetric, tongue protrudes to the midline. Palatal elevation and sensation normal, hearing and shoulder shrug normal, facial sensation normal. Shoulder shrug normal. On muscle strength testing, there is no pronator drift and the strength is normal in arms and legs distally and proximally. Deep tendon reflexes are symmetric 1+ and plantars downgoing. Sensory to touch is equal with no neglect on double simultaneous stimulation. Cerebellar function showed no ataxia for [id number] testing. No dysdiadochokinesia. Tone and bulk of muscles normal. Gait normal. On general examination, there is no carotid bruit or murmur, S1-S2 audible. Abdomen is soft nontender. No organomegaly, bowel sounds present. Chest is clear. Peripheral pulses are present. No edema. Results - Laboratory Findings CBC and BMP: 01/07/22 06:28 01/07/22 06:28 Abnormal Lab Findings: Abnormal Labs 01/06/22 01/07/22 01/07/22 14:21 06:28 06:28 RBC 4.28 L Hct 39.5 L MPV 9.2 L Sodium 136 L BUN 8 L 7.3 L BUN/Creatinine Ratio 10.43 L Glucose 111 H Triglycerides 232.00 H Cholesterol 248.00 H LDL Cholesterol, Calc 167.1 H VLDL Cholesterol, Calc 46.40 H HDL Cholesterol 34.50 L Assessment and Plan Assessment: * Transient diplopia lasting for 45 minutes to an hour. Rule out TIA. * Hypertension * Acute sinusitis, perhaps viral. Plan: * MRI of the brain revealed age-related changes of atrophy and chronic small vessel ischemia. Correlate for sinusitis, mastoiditis on the left. I personally reviewed MRI of the brain and agree with the findings. Patient at present states his sinus congestion is improving. There is no color to the phlegm. Probable viral. * Hemoglobin A1c 5.5 * Lipid panel with cholesterol 248, LDL 167, HDL 34 and triglycerides 232. Sta rt Lipitor 40 mg daily for dyslipidemia. * Carotid Doppler showed no significant stenosis. Antegrade flow in both vertebral arteries. * CTA of head and neck are normal. * 2-D echo showed mild concentric LVH. EF is between 55-60%. Normal left atrial size. Trace to mild AR. Mild MR. * Patient was given aspirin 325 mg in the ER, yesterday and today. He will be discharged on aspirin 81 mg daily indefinitely. * Patient recommended to follow-up with quality audit representative in 1-2 weeks. * Telemetric monitoring so far showing no arrhythmia. * Neurologically clear for discharge.
== END 2022-01-07 14:20 | disposition home or self-care (01) ==
LOC: EC 13:57 → 6NMEDSUR 18:48
PROVIDERS: ADMIT Internal Medicine; ATTEND Internal Medicine
DX: J01.90 Acute sinusitis, unspecified (principal); I16.0 Hypertensive urgency; I11.9 Hypertensive heart disease without heart failure; T46.5X6A Underdosing of other antihypertensive drugs, initial encounter; Z91.128 Patient's intentional underdosing of medication regimen for other reason; I08.3 Combined rheumatic disorders of mitral, aortic and tricuspid valves; E78.5 Hyperlipidemia, unspecified; I44.0 Atrioventricular block, first degree; I45.10 Unspecified right bundle-branch block; Z20.822 Contact with and (suspected) exposure to COVID-19; Z79.899 Other long term (current) drug therapy; Z86.16 Personal history of COVID-19; Z96.649 Presence of unspecified artificial hip joint; Z87.891 Personal history of nicotine dependence; Z98.890 Other specified postprocedural states; Z82.49 Family history of ischemic heart disease and other diseases of the circulatory system
CPT/HCPCS: 96374; 99285; 36415; 93005; 93306; 80061; 80053; 80048; 83735; 84484; 85025 ×2; 85610; 83036; 87635; 93880; 70496; 70450; 70498; 70551; G0378 ×2; J2060; Q9967